=== PATIENT | male | born 1985 | race Caucasian/White ===

== ENCOUNTER 2023-03-19 04:14 | Emergency (ER) | payer OTHER ==
[~2023-03-19] VITALS: Ht 185.4 cm; Wt 90.7 kg
[2023-03-19 04:53] VITALS: TEMP 98.3
[2023-03-19] MEDS ORDERED: KETOROLAC TROMETHAMINE 15 MG/ML VIAL ONE (04:56)
[2023-03-19] MEDS ORDERED: METOCLOPRAMIDE HCL 10 MG/2 ML VIAL ONE (04:56)
[2023-03-19] MEDS ORDERED: dexaMETHasone SOD PHOSPHATE 1 ML ONE (04:56)
[2023-03-19] MEDS ORDERED: diphenhydrAMINE HCL 50 MG/ML VIAL ONE (04:56)
[2023-03-19] MEDS ORDERED: IV NS 0.9% 1,000 ML BAG IV ONE (05:00)
[2023-03-19] MEDS ORDERED: METOCLOPRAMIDE HCL 10 MG/2 ML VIAL IV ONE (05:00)
[2023-03-19] MEDS ORDERED: KETOROLAC TROMETHAMINE INJ 30 MG/ML VIAL IV ONE (05:00)
[2023-03-19] MEDS ORDERED: dexaMETHasone SOD PHOSPHATE 10 MG/ML VIAL IV ONE (05:00)
[2023-03-19] MEDS ORDERED: diphenhydrAMINE HCL 50 MG/ML VIAL IV ONE (05:00)
[2023-03-19 06:30] VITALS: BP 134/91; O2SAT 98
== END 2023-03-19 06:31 | disposition home or self-care (01) ==
LOC: ER 04:16
DX: G43.909 Migraine, unspecified, not intractable, without status migrainosus (principal)
CPT/HCPCS: 99284; 96374; 96375; 96361; J1100; J1200; J2765; J7030; J1885